=== PATIENT | male | born 1995 | race Caucasian/White ===

== ENCOUNTER 2019-12-11 21:24 | Emergency (ER) | payer OTHER ==
[2019-12-11] MEDS ORDERED: Lidocaine 1% 10 ML MDV INJECT ONE (21:47)
--- NOTE | 2019-12-11 21:53 | EDM.PDOC ---
ED HPI GENERAL MEDICAL PROBLEM - General Chief Complaint: Laceration Stated Complaint: FOREHEAD LAC Time Seen by Provider: 12/11/19 21:37 Source of Information: Reports: Patient, RN Notes Reviewed History Limitations: Reports: No Limitations - History of Present Illness INITIAL COMMENTS - FREE TEXT/NARRATIVE: Patient is a 24-year-old male who presents to the ED for evaluation of forehead laceration. 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 This resulted in a roughly 2 cm linear laceration that is vertical in nature on the patient's medial right eyebrow. He did have a mild headache at the time of the injury, did take 2 to ibuprofen for this, and states that his headache is getting better. He is not having any blurred vision or double vision, he is not have any other sick-like symptoms. The wound is not actively bleeding at time of triage. 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 ED EXAM, SKIN/RASH Exam: See Below Exam Limited By: No Limitations General Appearance: Alert, WD/WN, No Apparent Distress Eye Exam: Bilateral Eye: EOMI, Normal Inspection, PERRL Ears: Normal External Exam, Normal Canal, Hearing Grossly Normal, Normal TMs Nose: Normal Inspection Throat/Mouth: Normal Inspection, Normal Lips, Normal Teeth, Normal Gums, Normal Oropharynx, Normal Voice, No Airway Compromise Head: Normocephalic Neck: Normal Inspection, Supple, Non-Tender, Full Range of Motion Respiratory/Chest: No Respiratory Distress, Lungs Clear, Normal Breath Sounds, No Accessory Muscle Use, Chest Non-Tender Cardiovascular: Normal Peripheral Pulses, Regular Rate, Rhythm, No Murmur Neurological: Alert, Oriented, Normal Cognition, No Motor/Sensory Deficits Psychiatric: Normal Affect, Normal Mood Skin: Warm, Dry, Normal Color, No Rash, Wound/Incision (2 cm linear laceration that is vertical in nature, to the right medial eyebrow.) ED SKIN PROCEDURES - Laceration/Wound Repair Right Medial Face Appearance: Superficial, Clean Distal NVT: Neuro & Vascular Intact, No Tendon Injury Anesthetic Type: Local Local Anesthesia - Lidocaine (Xylocaine): 1% Plain Local Anesthetic Volume: 3cc Skin Prep: Chlorhexidine (Hibiciens), Saline Exploration/Debridement/Repair: Wound Explored, In a Bloodless Field, Explored to Base, No Foreign Material Found Closed with: Sutures Lac/Wound length In cm: 2 Suture Size: 5-0 # of Sutures: 8 Suture Type: Prolene, Interrupted, Simple Sterile Dressing Applied: Nurse Tetanus Status Addressed: Yes Complications: No Course - Vital Signs Last Recorded V/S: Last Vital Signs Temp 98.2 F 12/11/19 21:39 Pulse 84 12/11/19 21:39 Resp 17 12/11/19 21:39 BP 116/89 12/11/19 21:39 Pulse Ox 99 12/11/19 21:39 - Orders/Labs/Meds Meds: Medications Discontinued Medications Generic Name Dose Route Start Last Admin Trade Name Kimber PRN Reason Stop Dose Admin Lidocaine HCl 10 ml 12/11/19 21:47 12/11/19 22:04 Xylocaine 1% INJECT 12/11/19 21:48 10 ml ONETIME ONE Administration Departure - Departure Time of Disposition: 21:52 Disposition: Home, Self-Care 01 Condition: Good Clinical Impression: Simple laceration of face Qualifiers: Encounter type: initial encounter Qualified Code(s): S01.81XA - Laceration without foreign body of other part of head, initial encounter - Discharge Information *PRESCRIPTION DRUG MONITORING PROGRAM REVIEWED*: No *COPY OF PRESCRIPTION DRUG MONITORING REPORT IN PATIENT LOGAN: No Instructions: Sutured Wound Care, [id number] Forms: ED Department Discharge Additional Instructions: You have been evaluated in the ED for your laceration. Sutures will need to stay in for 5-7 days. Theses will need to be removed. You may return to the ED or any clinic for removal. Please keep this area clean and dry, you may cleanse with regular soap and water. No vigorous scrubbing. Please try to avoid submerging the affected area in water for prolonged periods of time until the sutures are removed. Watch out for signs of infection like increased redness, swelling, pain at the laceration site, or if you should develop any fevers or chills. Please return to ED if your symptoms change or worsen. Sepsis Event Note (ED) - Evaluation Sepsis Screening Result: No Definite Risk - Focused Exam Vital Signs: Vital Signs Temp Pulse Resp BP Pulse Ox 12/11/19 21:39 98.2 F 84 17 116/89 99
== END 2019-12-11 22:35 | disposition home or self-care (01) ==
LOC: EDSEX → JD.ED 21:24
DX: S01.81XA Laceration without foreign body of other part of head, initial encounter (principal); W22.8XXA Striking against or struck by other objects, initial encounter
CPT/HCPCS: 12011; 99282; J2001

== ENCOUNTER 2019-12-17 22:21 | Emergency (ER) | payer OTHER | END 2019-12-17 23:00 | disposition home or self-care (01) | LOC: JD.ED 22:21 → EDSEX 22:21 → JD.ED 23:00 | DX: S01.81XD Laceration without foreign body of other part of head, subsequent encounter (principal); W22.09XD Striking against other stationary object, subsequent encounter | CPT/HCPCS: 99281 ==